=== PATIENT | male | born 1955 | race Caucasian/White ===

== ENCOUNTER 2023-05-07 17:56 | Emergency (ER) | payer MEDICARE, OTHER, SELFPAY ==
[2023-05-07 18:05] VITALS: BP 147/87; PULSE 58; RESP 20; TEMP 36.9; O2SAT 98
--- NOTE | 2023-05-07 18:06 | CT_ITS ---
The [address] [address] Patient Name: ALEXANDER GARCIA MRN: [id number] date: 1955 Sex: M Assigned Patient Location: ER Current Patient Location: Accession/Order Number: [id number] Exam Date: 05/07/2023 18:31 Report Date: 05/07/2023 19:37 At the request of: LISSETT VIVAS Procedure: CT abdomen pelvis w con EXAM: CT scan of the abdomen and pelvis using 100 mL of IV iodinated contrast. Dose reduction technique used: Automated exposure control and/or adjustment of the mA and/or kV according to patient size and/or use of iterative reconstruction technique. REASON FOR EXAM: Fall COMPARISON: None FINDINGS: Acute anterior nondisplaced left rib fractures, likely the sixth and seventh ribs. Cholelithiasis. Small esophageal hiatal hernia. Small splenic cyst or hemangioma. Colonic diverticulosis. No evidence of appendicitis. No free intraperitoneal air. No free fluid in the abdomen or pelvis. No dilated or thickened loops of small bowel or colon. No hydronephrosis or obstructing renal or ureteral calculi. Liver, pancreas, spleen, bilateral kidneys, and bilateral adrenal glands are otherwise unremarkable. No lymphadenopathy in the abdomen or pelvis. Remainder unremarkable. IMPRESSION: 1. No acute abnormalities in the abdomen or pelvis. 2. Acute anterior left rib fractures. Electronically authenticated by: ISAAC PEREZ Date: 05/07/2023 19:37
--- NOTE | 2023-05-07 18:06 | CT_ITS ---
[address] [address] Patient Name: ALEXANDER GARCIA MRN: [id number] date: 1955 Sex: M Assigned Patient Location: ER Current Patient Location: Accession/Order Number: [id number] Exam Date: 05/07/2023 18:31 Report Date: 05/07/2023 19:39 At the request of: LISSETT VIVAS Procedure: CT cervical spine wo con EXAM: CT scan of the cervical spine without contrast. Dose reduction technique used: Automated exposure control and/or adjustment of the mA and/or kV according to patient size and/or use of iterative reconstruction technique. REASON FOR EXAM: Fall COMPARISON: None FINDINGS: No fractures, dislocations or acute malalignment of the cervical spine. Cervical spine degenerative changes with multilevel bilateral mild and moderate neural foraminal stenoses. Anterolisthesis of C4 on C5 on a degenerative basis. Multilevel mild and moderate spinal canal stenoses. Remainder unremarkable. IMPRESSION: No acute cervical spine abnormalities. Electronically authenticated by: ISAAC PEREZ Date: 05/07/2023 19:39
--- NOTE | 2023-05-07 18:06 | CT_ITS ---
The [address] [address] Patient Name: ALEXANDER GARCIA MRN: [id number] date: 1955 Sex: M Assigned Patient Location: ER Current Patient Location: ER Accession/Order Number: [id number] Exam Date: 05/07/2023 18:31 Report Date: 05/07/2023 19:43 At the request of: LISSETT VIVAS Procedure: CT chest w con EXAM: CT chest w con HISTORY: Fall COMPARISON: Same day CT abdomen/pelvis TECHNIQUE: Helical CT imaging performed of the chest after the administration of IV contrast visualized with coronal and sagittal reconstructions. FINDINGS: Nondisplaced thin fracture line seen through the posterior left ninth, eighth, seventh ribs. Scattered mild patchy opacities in the lungs are seen bilaterally, and with a peripheral predominance. No significant honeycombing. No significant bronchiectasis. No significant pleural effusion. No pneumothorax. The heart, thoracic aorta and pulmonary artery are within normal size limits. No large or central pulmonary embolism. No aortic dissection. No pericardial effusion. Limited visualized upper abdomen. Refer to same day CT abdomen/pelvis. There is a small sliding hiatal hernia. IMPRESSION: Left-sided posterior nondisplaced seventh, eighth and ninth rib fractures. Mild patchy irregular opacities with possible reticulation seen in the lung bases, with peripheral predominance, which may represent an underlying interstitial lung disease, or possibly significant atelectasis. Consider follow-up high-resolution chest CT. Electronically authenticated by: ADDISON GOMEZ Date: 05/07/2023 19:43
--- NOTE | 2023-05-07 18:06 | CT_ITS ---
[address] [address] Patient Name: ALEXANDER GARCIA MRN: [id number] date: 1955 Sex: M Assigned Patient Location: ER Current Patient Location: ER Accession/Order Number: [id number] Exam Date: 05/07/2023 18:31 Report Date: 05/07/2023 19:28 At the request of: LISSETT VIVAS Procedure: CT head/brain wo con EXAMINATION: CT head/brain wo con, 05/07/2023 6:31 PM EDT HISTORY: Fall COMPARISON: None. TECHNIQUE: CT scan of the head was performed without IV contrast. CT dose reduction technique was used, including Automated Exposure Control. FINDINGS: BRAIN PARENCHYMA/CSF SPACES: Ventricles are normal in size for age. There is no hemorrhage, mass effect or midline shift. There are no other significant findings. PARANASAL SINUSES: Mild to moderate bilateral ethmoid sinus mucosal thickening. Mild to moderate bilateral sphenoid sinus mucosal thickening. SKULL BASE AND CALVARIUM: Normal. EXTRACRANIAL SOFT TISSUES: Normal. IMPRESSION: 1. No acute intracranial abnormality. 2. Sinus disease as described. Electronically authenticated by: AARON PABLO Date: 05/07/2023 19:28
--- NOTE | 2023-05-07 18:09 | ED_ITS ---
HPI - Fall General Chief Complaint: Fall Stated Complaint: RIB PAIN Time Seen by Provider: 05/07/23 18:06 Source: patient and family Mode of arrival: Wheelchair Limitations: physical limitation History of Present Illness HPI Narrative: Patient is a 68-year-old male who presents to the emergency department for the evaluation of a fall with injury to the left chest wall. Patient states that he was on a ladder about 4 feet off the ground when he fell and struck the left side of his chest against the ladder. He complains of severe pain in the left chest wall. He is on a baby aspirin daily, no other anticoagulation. He denies head injury, loss of consciousness. He denies extremity injury, neck or back pain. No medications taken prior to arrival. Related Data Previous Rx's Medication Instructions Recorded ketorolac 10 mg tablet 10 mg PO TID PRN pain #10 tabs 05/07/23 methocarbamol 750 mg tablet 750 mg PO TID muscle spasm/pain 05/07/23 #20 tabs ondansetron 4 mg disintegrating 4 mg PO Q6H PRN nausea and 05/07/23 tablet vomiting #12 tabs oxycodone-acetaminophen 5 mg-325 1 tab PO Q6H PRN pain #15 tabs 05/07/23 mg tablet (Percocet) Allergies Allergy/AdvReac Type Severity Reaction Status Date / Time No Known Drug Allergies Allergy Verified 05/07/23 18:04 Review of Systems ROS Constitutional Denies: fever or chills Ears, nose, mouth, and throat Denies: neck pain Cardiovascular Reports: chest pain Respiratory Reports: shortness of breath and pain on inspiration Gastrointestinal Denies: nausea or vomiting Musculoskeletal Denies: back pain, neck pain or extremity pain Neurological Denies: headache PFSH PFSH Social History Smoking status: Never smoker Exam Narrative Exam Narrative: Gen.: Awake, alert, in no distress Head: Normocephalic, atraumatic ENT: Moist mucous membranes, no evidence of head injury, C-spine nontender Respiratory: No respiratory distress, lungs clear bilaterally with moderate tenderness and faint abrasion noted to the left inferior chest wall, no ecchymosis or crepitance. No flail chest. Cardio: Regular rate and rhythm Gastrointestinal: Abdomen is soft, nondistended and nontender to palpation Extremities: Moves extremities equally, no injuries noted Psych: Normal mood and affect Neuro: No focal neuro deficit Skin: Warm, dry, intact Constitutional Vital Signs - 24 hr 05/07/23 18:05 Temperature 98.4 F Pulse Rate [Monitor] 58 L Respiratory Rate 20 Blood Pressure [Left Arm] 147/87 H Pulse Oximetry 98 Oxygen Delivery Method Room Air Course Vital Signs Vital signs: Vital Signs Temperature 98.4 F 05/07/23 18:05 Pulse Rate 58 L 05/07/23 18:05 Respiratory Rate 20 05/07/23 18:05 Blood Pressure 147/87 H 05/07/23 18:05 Pulse Oximetry 98 05/07/23 18:05 Oxygen Delivery Method Room Air 05/07/23 18:05 Temperature 98.4 F 05/07/23 18:05 Pulse Rate 58 L 05/07/23 18:05 Respiratory Rate 20 05/07/23 18:05 Blood Pressure 147/87 H 05/07/23 18:05 Pulse Oximetry 98 05/07/23 18:05 Oxygen Delivery Method Room Air 05/07/23 18:05 MDM - Fall MDM Narrative Medical decision making narrative: Patient was immediately brought to a trauma room and evaluated, he has stable vital signs, an IV was established and he was given IV pain medication with improvement. CTs of the head, C-spine, chest/abdomen and pelvis were performed. This shows the patient has three nondisplaced rib fractures of the left posterior 7th, 8th, 9th ribs. No other acute abnormalities identified. Patient was remedicated for pain prior to discharge and will be discharged home with an incentive spirometer as well as pain medication and muscle relaxants. Follow-up with PCP and return to the Emergency Room if symptoms change or worsen. Patient improved on reevaluation by attending physician at discharge. Medical Records Attestation: I reviewed the patient's medical records. Lab Data Attestation: I reviewed the patient's lab results. Labs: Lab Results 05/07/23 Range/Units 18:10 WBC 7.1 (4.0-11.0) 10^3/uL RBC 4.55 L (4.70-6.10) 10^6/uL Hgb 13.5 L (14.0-18.0) g/dL Hct 40.6 L (42.0-54.0) % MCV 89.2 (80.0-94.0) fL MCH 29.7 (25.9-34.0) pg MCHC 33.3 (29.9-35.2) g/dL RDW 13.0 (11.0-15.0) % Plt Count 198 (150-450) 10^3/uL MPV 10.4 (9.5-13.5) fL Neut % (Auto) 57.0 (43.0-75.0) % Lymph % (Auto) 26.0 (20.5-60.0) % [place] % (Auto) 7.9 (1.7-12.0) % Eos % (Auto) 8.1 H (0.9-7.0) % Baso % (Auto) 0.7 (0.2-2.0) % Neut # (Auto) 4.0 (1.4-6.5) 10^3/uL Lymph # (Auto) 1.8 (1.2-3.8) 10^3/uL [place] # (Auto) 0.6 (0.3-0.8) 10^3/uL Eos # (Auto) 0.6 (0.0-0.7) 10^3/uL Baso # (Auto) 0.1 (0.0-0.1) 10^3/uL Abs Immat Gran (auto) 0.02 (0.00-0.03) 10^3/uL Imm/Tot Granulo (auto) 0.3 (0.0-0.5) % PT 10.3 (9.0-11.6) sec INR 0.97 APTT 25.3 (22.3-36.2) sec Sodium 139 (136-145) mmol/L Potassium 3.9 (3.5-5.1) mmol/L Chloride 105 (98-107) mmol/L Carbon Dioxide 28.2 (21.0-32.0) mmol/L Anion Gap 9.7 BUN 19.0 H (7.0-18.0) mg/dL Creatinine 1.25 (0.70-1.30) mg/dL Est GFR ( Amer) >60 (>=60) Est GFR (Non-Af Amer) 57 L (>=60) BUN/Creatinine Ratio 15.2 Glucose 90 (74-106) mg/dL Calcium 8.6 (8.5-10.1) mg/dL Total Bilirubin 0.7 (0.2-1.0) mg/dL AST 22 (15-37) U/L ALT 25 (16-63) U/L Alkaline Phosphatase 84 (46-116) U/L Total Protein 7.2 (6.4-8.2) g/dL Albumin 3.9 (3.4-5.0) g/dL Globulin 3.3 g/dL Albumin/Globulin Ratio 1.2 Lipase 122.0 (73.0-393.0) U/L Imaging Data CT scan - head: Attestation: I have reviewed the pertinent imaging results. CT scan - chest: Attestation: I have reviewed the pertinent imaging results. CT scan - abdomen: Attestation: I have reviewed the pertinent imaging results. CT- cspine: Attestation: I have reviewed the pertinent imaging results. Discharge Plan Discharge Chief Complaint: Fall Clinical Impression: Multiple fractures of ribs, Chest wall contusion, Fall Patient Disposition: Home, Self-Care Time of Disposition Decision: 20:18 Condition: Good Prescriptions / Home Meds: New oxycodone-acetaminophen [Percocet] 5-325 mg tablet 1 tab PO Q6H PRN (Reason: pain) Qty: 15 0RF methocarbamol 750 mg tablet 750 mg PO TID Qty: 20 0RF ketorolac 10 mg tablet 10 mg PO TID PRN (Reason: pain) Qty: 10 0RF ondansetron 4 mg tablet,disintegrating 4 mg PO Q6H PRN (Reason: nausea and vomiting) Qty: 12 0RF Instructions: Rib Fracture (ED), Contusion in Adults (ED) Stand Alone Forms: Portal Instructions Referrals: SHERYL KESSLER [Primary Care Provider] - 1 week
[2023-05-07] MEDS: 0.9 % SODIUM CHLORIDE 1,000 ML 999 ML IV (18:18)
[2023-05-07] MEDS: ONDANSETRON PF 4 MG/2 ML VIAL IV (18:19)
[2023-05-07] MEDS: HYDROMORPHONE HCL 1 MG/ML CARTRIDGE IVP (18:19)
[2023-05-07] MEDS: ORPHENADRINE 60 MG/ 2 ML VIAL IV (18:19)
[2023-05-07 18:58] LABS: Basophils Absolute Auto 0.1 10^3/uL (0.0-0.1); Basophils Percent Auto 0.7 % (0.2-2.0); Eosinophils Absolute Auto 0.6 10^3/uL (0.0-0.7); Eosinophils Percent Auto 8.1 % (0.9-7.0); Hematocrit 40.6 % (42.0-54.0); Hemoglobin 13.5 g/dL (14.0-18.0); Immature Granulocytes Abs Auto 0.02 10^3/uL (0.00-0.03); Immature Granulocytes Pct Auto 0.3 % (0.0-0.5); Lymphocytes Absolute Auto 1.8 10^3/uL (1.2-3.8); Mean Corpuscular HGB Conc 33.3 g/dL (29.9-35.2); Mean Corpuscular Hemoglobin 29.7 pg (25.9-34.0); Mean Corpuscular Volume 89.2 fL (80.0-94.0); Mean Platelet Volume 10.4 fL (9.5-13.5); Monocytes Absolute Auto 0.6 10^3/uL (0.3-0.8); Monocytes Percent Auto 7.9 % (1.7-12.0); Platelet Count 198 10^3/uL (150-450); Red Blood Count 4.55 10^6/uL (4.70-6.10); White Blood Count 7.1 10^3/uL (4.0-11.0)
[2023-05-07 19:00] VITALS: BP 119/72; PULSE 49; RESP 18; O2SAT 98
[2023-05-07 19:25] LABS: Alanine Aminotransferase 25 U/L (16-63); Albumin Globulin Ratio 1.2; Albumin Level 3.9 g/dL (3.4-5.0); Alkaline Phosphatase 84 U/L (46-116); Anion Gap 9.7; Aspartate Amino Transferase 22 U/L (15-37); BUN Creatinine Ratio 15.2; Bilirubin Total 0.7 mg/dL (0.2-1.0); Calcium 8.6 mg/dL (8.5-10.1); Carbon Dioxide 28.2 mmol/L (21.0-32.0); Chloride 105 mmol/L (98-107); Estimated GFR (African America >60 (>=60); Estimated GFR (Non-African Ame 57 (>=60); Globulin 3.3 g/dL; Glucose 90 mg/dL (74-106); Potassium 3.9 mmol/L (3.5-5.1); Sodium 139 mmol/L (136-145); Total Protein 7.2 g/dL (6.4-8.2)
[2023-05-07 19:38] LABS: INR 0.97; Partial Thromboplastin Time 25.3 sec (22.3-36.2); Prothrombin Time 10.3 sec (9.0-11.6)
[2023-05-07 19:57] VITALS: BP 148/85; PULSE 48; RESP 16; O2SAT 97
[2023-05-07 20:00] VITALS: BP 139/85; PULSE 66; RESP 20; O2SAT 97
[2023-05-07 20:30] VITALS: BP 140/82
[2023-05-07 20:32] VITALS: BP 151/105
[2023-05-07] MEDS: FENTANYL CITRATE/PF 100 MCG/2 ML VIAL 50 MCG IV (20:42)
[2023-05-07] MEDS: KETOROLAC TROMETHAMINE 30 MG/ML VIAL IVP (20:43)
== END 2023-05-07 20:48 | disposition home or self-care (01) ==
PROVIDERS: Physician Assistant; Emergency Provider Emergency Medicine Emergency Medical Services; PCP Family Medicine
DX: S22.42XA Multiple fractures of ribs, left side, initial encounter for closed fracture (principal); S20.219A Contusion of unspecified front wall of thorax, initial encounter; W11.XXXA Fall on and from ladder, initial encounter
CPT/HCPCS: 36415; 70450; 71260; 72125; 74177; 80053; 83690; 85025; 85610; 85730; 94667; 96374; 96375; 99284; J1170; Q9967